=== PATIENT | female | born 1950 | race Caucasian/White ===

== ENCOUNTER 2018-01-17 19:12 | Inpatient (IN) | payer OTHER ==
[~2018-01-17] VITALS: Ht 149.9 cm; Wt 59.0 kg
[2018-01-17 19:42] LABS: ABSOLUTE BASOPHIL COUNT 0 /CUMM (0.0-0.2); ABSOLUTE EOSINOPHIL COUNT 0 /CUMM (0.0-0.7); ABSOLUTE GRANULOCYTE CT 9.8 /CUMM (1.4-6.5); ABSOLUTE LYMPH COUNT 0.9 /CUMM (1.2-3.4); ABSOLUTE MONOCYTE COUNT 0.3 /CUMM (0.10-0.60); BASOPHIL % 0.4 % (0.0-2.0); EOSINOPHIL % 0 % (0-5); HEMATOCRIT 41.4 % (37-47); MEAN CORPUSCULAR HGB 30.2 PG (27.0-31.0); MEAN CORPUSCULAR HGB CONC 32.8 G/DL (33.0-37.0); MEAN PLATELET VOLUME 7.8 FL (7.4-10.4); PLATELET COUNT 392 /CUMM (130-400); RBC DISTRIBUTION WIDTH 12.3 % (11.5-14.5)
--- NOTE | 2018-01-17 19:47 | ED GI/GU/ABDOMINAL COMPLAINT ---
History of Present Illness General Chief Complaint: Abdominal Pain/Flank Pain Stated Complaint: BIBA FOR EVAL ABDOMINAL PAIN Source: patient Exam Limitations: no limitations Vital Signs & Intake/Output Vital Signs & Intake/Output Vital Signs Date Time Temp Pulse Resp B/P B/P Pulse O2 O2 Flow FiO2 Mean Ox Delivery Rate 01/18 2252 98.8 70 20 135/60 98 Room Air 01/17 2114 97.7 73 24 151/71 98 Room Air 01/18 1956 98 Room Air 01/18 1920 97.7 62 20 132/68 98 Room Air ED Intake and Output 01/18 0000 01/17 1200 Intake Total 1000 Output Total Balance 1000 Intake, IV 1000 Patient 130 lb Weight Weight Reported by Patient Measurement Method Allergies Coded Allergies: MDX - Shellfish (SHELLFISH) (UNKNOWN 06/02/15) Reconcile Medications Esomeprazole (Nexium) 40 MG CAPSULE.DR 1 CAP PO DAILY ACID REFLUX (Reported) Losartan/Hydrochlorothiazide (Losartan-Hctz 100-12.5 MG Tab) 100 MG-12.5 MG TABLET 1 TAB PO DAILY HIGH BLOOD PRESSURE (Reported) Triage Note: BIBA FROM HOME WITH C/O ABD PAIN THAT BEGAN THIS AM. PT REPORTS HAVING A NORMAL BM THIS AM AND THE THE PAIN GOT PROGRESSIVELY WORSE. PT REPORTS VOMITING 6-7 TIMES TODAY AND ONLY HAD TOAST AND COFFEE THIS AM. PAIN 5/10 WITH AND WITHOUT PALAPTION. PT CHANGED INTO GOWN,PLACWED ON MONITOR. SARAH PEREZ IN ROOM. Triage Nurses Notes Reviewed? yes ? n Is pt currently ? No Onset: Abrupt Duration: day(s): (1), constant, continues in ED Timing: recent history Quality/Severity: moderate, sharpness, severe Location: generalized abdomen Radiation: no radiation No Modifying Factors: none HPI: 67-year-old female comes into the emergency room with complaints of left lower bowel pain has been going on since this morning. Some associated vomiting. She had 2 bowel movements this morning. She denies passing any gas since then. Pain is sharp. Severe. Continuous. Nonradiating. Denies any prior abdominal surgeries. Denies any other system symptoms. (Chris SMITH,Dov) Past History Travel History Traveled to [place] past 21 day No Medical History Any Pertinent Medical History? see below for history Surgical History Surgical History: no abdominal surgeries Psychosocial History What is your primary language Lao Tobacco Use: Never used ETOH Use: denies use Family History Hx Contributory? No (Dov Li) Review of Systems Review of Systems Constitutional: Reports: no symptoms. EENTM: Reports: no symptoms. Respiratory: Reports: no symptoms. Cardiovascular: Reports: no symptoms. GI: Reports: see HPI. Genitourinary: Reports: no symptoms. Musculoskeletal: Reports: no symptoms. Skin: Reports: no symptoms. Neurological/Psychological: Reports: no symptoms. Hematologic/Endocrine: Reports: no symptoms. Immunologic/Allergic: Reports: no symptoms. All Other Systems: Reviewed and Negative (Dov Li) Physical Exam Physical Exam General Appearance: well developed/nourished, alert, awake Head: atraumatic Eyes: Bilateral: normal appearance, EOMI. Ears, Nose, Throat, Mouth: hearing grossly normal, moist mucous membrane Neck: normal inspection Respiratory: no respiratory distress Cardiovascular: regular rate/rhythm Gastrointestinal: soft, tenderness (left lower quadrant) Back: normal inspection Extremities: normal range of motion Neurologic/Psych: awake, alert, oriented x 3, normal gait Skin: intact, normal color Core Measures ACS in differential dx? No Sepsis Present: No Sepsis Focused Exam Completed? No (Dov Li) Progress Differential Diagnosis: appendicitis, biliary colic, bowel obstruction, cholecystitis, diverticulitis, gastritis, ischemic bowel, inflamm bowel dis, ovarian cyst, ovarian torsion, pancreatitis, PID/cervicitis, peptic ulcer, PUD/ GERD, perforated viscous, SBO, threatened AB, UTI/pyelo Plan of Care: Orders Procedure Date/time Status Nothing by Mouth 01/18 B Active XRY-CHEST XRAY, TWO VIEWS 01/18 06 Active [id number] VIEWS 01/18 06 Active LACTIC ACID 01/18 0600 Active CBC WITHOUT DIFFERENTIAL 01/18 06 Active BASIC ELECTROLYTES PLUS BUN&CR 01/18 06 Active Admit to inpatient 01/17 2309 Active Pathway - chart 01/17 2257 Active Patient Data 01/17 2257 Active Code Status 01/17 225 Active LACTIC ACID 01/17 2216 Complete TROPONIN LEVEL 01/17 191 Complete LIPASE 01/17 191 Complete LACTIC ACID 01/17 191 Complete COMPREHENSIVE METABOLIC PANEL 01/18 1916 Complete CBC WITHOUT DIFFERENTIAL 01/18 1916 Complete EKG 03/03 1916 Active VTE Mechanical Prophylaxis 01/17 UNK Active Vital Signs 01/17 UNK Active Intake & Output 01/17 UNK Active Activity/Ambulation 01/17 UNK Active Current Medications Sig/Ryne Start time Last Medication Dose Stop Time Status Admin Hydrochlorothiazide 12.5 MG DAILY 01/18 1000 UNVr (Hydrodiuril) Losartan Potassium 100 MG DAILY 01/18 1000 UNVr (Cozaar) Omeprazole 40 MG DAILY AC 01/18 0700 UNVr (Prilosec) Acetaminophen 650 MG Q6PRN PRN 01/17 2300 UNVr (Tylenol) Dextrose/Sodium 1,000 ML .Q10H 01/17 2300 UNVr Chloride (D5-Normal Saline) Morphine Sulfate 2 MG Q3P PRN 01/17 2300 UNVr 01/18 (Morphine) 0026 Morphine Sulfate 4 MG Q3P PRN 01/17 2300 UNVr (Morphine) Ondansetron HCl 4 MG Q8P PRN 01/17 2300 UNVr (Zofran) Zolpidem Tartrate 2.5 MG AT BEDTIME NEED.. 01/17 2300 UNVr (Ambien) Laboratory Tests 01/17/18 2230: Lactic Acid 1.6 01/17/18 1935: Anion Gap 12, Estimated GFR > 60, BUN/Creatinine Ratio 15.7, Glucose 134 H, Lactic Acid 2.3 H, Calcium 10.0, Total Bilirubin 0.8, AST 26, ALT 29, Alkaline Phosphatase 77, Troponin I < 0.01, Total Protein 7.6, Albumin 4.5, Globulin 3.1, Albumin/Globulin Ratio 1.5, Lipase 82, CBC w Diff NO MAN DIFF REQ, RBC 4.50, MCV 92.0, MCH 30.2, MCHC 32.8 L, RDW 12.3, MPV 7.8, Gran % 89.3 H, Lymphocytes % 7.7 L, Monocytes % 2.6, Eosinophils % 0, Basophils % 0.4, Absolute Granulocytes 9.8 H, Absolute Lymphocytes 0.9 L, Absolute Monocytes 0.3, Absolute Eosinophils 0, Absolute Basophils 0 Diagnostic Imaging: Viewed by Me: CT Scan. Discussed w/RAD: CT Scan. Radiology Impression: PATIENT: RAFAL MACARIO PRESENT AGE: 67 PATIENT ACCOUNT NO: [id number] : 52 LOCATION: [facility] ORDERING PHYSICIAN: Dov SMITH SERVICE DATE: 01/17/18 EXAM TYPE: CAT - CT ABD & PELVIS W IV CONTRAST EXAMINATION: CT ABDOMEN AND PELVIS WITH CONTRAST CLINICAL INFORMATION: Lower abdominal pain, left-sided. COMPARISON: None TECHNIQUE: Multidetector volumetric imaging was performed of the abdomen and pelvis following IV administration of 95 mL of Optiray 320 intravenous contrast. Sagittal and coronal reformatted images were obtained on the technologist's workstation. DLP: 266 mGy-cm FINDINGS: LUNG BASES: There is a 0.4 cm subsolid left lower lobe pulmonary nodule. Noncalcified pleural plaque at the right lung base. LIVER, GALLBLADDER, AND BILIARY TREE: Trace ascites adjacent to the liver. No focal hepatic lesion. There is cholelithiasis without evidence of cholecystitis. No biliary ductal dilatation. PANCREAS: Unremarkable. SPLEEN: Unremarkable. ADRENAL GLANDS: Unremarkable. KIDNEYS AND URETERS: Bilateral nephrograms are symmetric without hydronephrosis. No suspicious renal mass. No renal or ureteral calculus. BLADDER: Unremarkable. GASTROINTESTINAL TRACT: There are dilated loops of small bowel with transition zone in the mid left abdomen ( see mcintyre images). Associated mesenteric edema of the dilated small bowel loops. The distal small bowel is decompressed. ABDOMINAL WALL: No significant hernia is appreciated. LYMPH NODES: No adenopathy demonstrated. 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 Mild scattered atherosclerotic calcification. PELVIC VISCERA: Trace free pelvic fluid. No suspicious uterine or adnexal lesion. OSSEOUS STRUCTURES: No acute osseous abnormalities. IMPRESSION: 1. Evidence of small bowel obstruction with transition zone in the left midabdomen (see mcintyre images). Associated mesenteric edema and trace ascites. No pneumoperitoneum. 2. Cholelithiasis without evidence of cholecystitis. 3. Subsolid left lower lobe 0.4 cm nodule. According to the UPDATED 2017 Fleischner Society recommendations, the advised follow-up imaging for a single subsolid nodule <6 mm is: No routine follow-up is needed. This critical result was discussed with Dr. Perez at 9:25 PM on 01/17/2018 and it was ascertained that the content and urgency of the report was understood at the time of direct communication. DICTATED BY: Agustin Faith MD DATE/TIME DICTATED: 01/17/182115 EQUITY TRADER:EMILIE DATE/TIME TRANSCRIBED:01/17/182115 CONFIDENTIAL, DO NOT COPY WITHOUT APPROPRIATE AUTHORIZATION. <Electronically signed in Other Vendor System> SIGNED BY: Agustin Faith MD 01/17/182132 Initial ED EKG: normal sinus rhythm, rate (60) (Dov Li) Departure Departure Disposition: STILL A PATIENT Condition: Stable Clinical Impression Primary Impression: SBO (small bowel obstruction) Referrals: Alber JUÁREZ,Dexter Ho (PCP/Family) Departure Forms: Customer Survey General Discharge Information Observation Note Spoke With: Aleks Chaudhry DO Physician Advisor Notified: JULES CHAMPION DO Place Patient In: Non-ED OBS Care Area Rationale for Observation: My rational for observation is as follows . Patient will require maintenance fluids. IV pain control. Repeat imaging in the morning. Surgery consultation. Patient may require operating room if symptoms don't resolve. (Dov Li) PA/ERP PM Co-Sign Statement Statement: ED Attending supervision documentation- x I saw and evaluated the patient. I have also reviewed all the pertinent lab results and diagnostic results. I agree with the findings and the plan of care as documented in the PA's/ERP PM's documentation. n/v, abd pain with SBO [] I have reviewed the ED Record and agree with the PA's/ERP PM's documentation. [] Additions or exceptions (if any) to the PAs/ERP PM's note and plan are summarized below: [] (Joel JUÁREZ,Marquise) Critical Care Note Critical Care Note Critical Care Time: 30-74 min (45) (Dov Li)
[2018-01-17] MEDS ORDERED: LOSARTAN-HCTZ1 EACH PO (19:54)
[2018-01-17] MEDS ORDERED: NEXIUM40 M1 PO (19:56)
[2018-01-17 20:10] LABS: GRANULOCYTE % 89.3 % (42.2-75.2)
--- NOTE | 2018-01-17 21:33 | CT SCAN REPORT ---
EXAMINATION: CT ABDOMEN AND PELVIS WITH CONTRAST CLINICAL INFORMATION: Lower abdominal pain, left-sided. COMPARISON: None TECHNIQUE: Multidetector volumetric imaging was performed of the abdomen and pelvis following IV administration of 95 mL of Optiray 320 intravenous contrast. Sagittal and coronal reformatted images were obtained on the technologist's workstation. DLP: 266 mGy-cm FINDINGS: LUNG BASES: There is a 0.4 cm subsolid left lower lobe pulmonary nodule. Noncalcified pleural plaque at the right lung base. LIVER, GALLBLADDER, AND BILIARY TREE: Trace ascites adjacent to the liver. No focal hepatic lesion. There is cholelithiasis without evidence of cholecystitis. No biliary ductal dilatation. PANCREAS: Unremarkable. SPLEEN: Unremarkable. ADRENAL GLANDS: Unremarkable. KIDNEYS AND URETERS: Bilateral nephrograms are symmetric without hydronephrosis. No suspicious renal mass. No renal or ureteral calculus. BLADDER: Unremarkable. GASTROINTESTINAL TRACT: There are dilated loops of small bowel with transition zone in the mid left abdomen (see mcintyre images). Associated mesenteric edema of the dilated small bowel loops. The distal small bowel is decompressed. ABDOMINAL WALL: No significant hernia is appreciated. LYMPH NODES: No adenopathy demonstrated. 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 Mild scattered atherosclerotic calcification. PELVIC VISCERA: Trace free pelvic fluid. No suspicious uterine or adnexal lesion. OSSEOUS STRUCTURES: No acute osseous abnormalities. IMPRESSION: 1. Evidence of small bowel obstruction with transition zone in the left midabdomen (see mcintyre images). Associated mesenteric edema and trace ascites. No pneumoperitoneum. 2. Cholelithiasis without evidence of cholecystitis. 3. Subsolid left lower lobe 0.4 cm nodule. According to the UPDATED 2017 Fleischner Society recommendations, the advised follow-up imaging for a single subsolid nodule <6 mm is: No routine follow-up is needed. This critical result was discussed with Dr. Perez at 9:25 PM on 01/17/2018 and it was ascertained that the content and urgency of the report was understood at the time of direct communication.
--- NOTE | 2018-01-17 23:12 | History & Physical Pre-Op ---
Tena Gant 01/17/18 2987: General Information and HPI MD Statement: I have seen and personally examined RAFAL MACARIO and documented this H&P. The patient is a 67 year old F who presented with a patient stated chief complaint of [abdominal pain]. Source of Information: patient Exam Limitations: no limitations History of Present Illness: 67yo female who woke up this morning feeling well, then had a piece of toast and some tea and soon after had abdominal pain. Described as upper left abdomen, not associated with nausea at first but later in the day became nauseated and has now vomited several times today. She has had two normal bowel movements today - last one before noon. Can't remember if she passed gas. Her pain has worsened throughout the day which is why she presented to the ED. She has not had this tiype of pain before. She denies prior abdominal surgeries but upon further questioning has had two C Sections. At the time of exam, she has had 4mg of morphine and a dose of zofran and she is currently comfortable without any pain or nausea and states that she feels much better. Allergies/Medications Home Med list Esomeprazole (Nexium) 40 MG CAPSULE.DR 1 CAP PO DAILY ACID REFLUX (Reported) Losartan/Hydrochlorothiazide (Losartan-Hctz 100-12.5 MG Tab) 100 MG-12.5 MG TABLET 1 TAB PO DAILY HIGH BLOOD PRESSURE (Reported) Compliance With Home Meds: GOOD Past History Medical History Cardiovascular: hypertension Respiratory: asthma (allergy induced) Gastrointestinal: GERD Surgical History Pertinent Surgical History: no abdominal surgeries Past Family/Social History Psychosocial History Where Do You Live? Home Primary Language: Egyptian ETOH Use: denies use Functional Ability ADLs Independent: dressing, eating, toileting, bathing. Ambulation: independent Review of Systems Review of Systems: Abdominal pain which is currently mild See HPI Exam & Diagnostic Data Last 24 Hrs of Vital Signs/I&O Vital Signs Date Time Temp Pulse Resp B/P B/P Pulse O2 O2 Flow FiO2 Mean Ox Delivery Rate 01/18 2252 98.8 70 20 135/60 98 Room Air 01/17 2114 97.7 73 24 151/71 98 Room Air 01/18 1956 98 Room Air 01/18 1920 97.7 62 20 132/68 98 Room Air Physical Exam: General: alert and oriented times three Chest: clear anteriorly bilaterally, RRR Abd: soft, nondistended, hypoactive bowel sounds present, tender to mild palpation in the LUQ, non tender even to moderate to deep palpation in the other three quadrants. Pt states that the pain is significantly less than upon arrival. Ext: warm, no edema, 2+DP bilaterally Last 24 Hrs of Labs/Frederic: Laboratory Tests 01/17/18 2230: Lactic Acid Pending 01/17/18 1935: Anion Gap 12, Estimated GFR > 60, BUN/Creatinine Ratio 15.7, Glucose 134 H, Lactic Acid 2.3 H, Calcium 10.0, Total Bilirubin 0.8, AST 26, ALT 29, Alkaline Phosphatase 77, Troponin I < 0.01, Total Protein 7.6, Albumin 4.5, Globulin 3.1, Albumin/Globulin Ratio 1.5, Lipase 82, CBC w Diff NO MAN DIFF REQ, RBC 4.50, MCV 92.0, MCH 30.2, MCHC 32.8 L, RDW 12.3, MPV 7.8, Gran % 89.3 H, Lymphocytes % 7.7 L, Monocytes % 2.6, Eosinophils % 0, Basophils % 0.4, Absolute Granulocytes 9.8 H, Absolute Lymphocytes 0.9 L, Absolute Monocytes 0.3, Absolute Eosinophils 0, Absolute Basophils 0 Diagnostic Data Other Results Abd/Pelvis CT 1. Evidence of small bowel obstruction with transition zone in the left midabdomen (see mcintyre images). Associated mesenteric edema and trace ascites. No pneumoperitoneum. 2. Cholelithiasis without evidence of cholecystitis. 3. Subsolid left lower lobe 0.4 cm nodule. According to the UPDATED 2017 Fleischner Society recommendations, the advised follow-up imaging for a single subsolid nodule <6 mm is: No routine follow-up is needed. Assessment/Plan Assessment/Plan: 67yo female presents with abdominal pain and CT consistent with sbo Discussed with Dr Chaudhry Plan to keep her for observation Hydrate with IVF NPO antiemetics as needed pain management with morphine as needed serial exams serial labs - second lactic acid is pending per Dr Chaudhry - 120cc of gastrograffin starting now, then get a multiview at 6 am to evaluate Discussed with the patient and her family - all questions answered As Ranked By This Provider Problem List: 1. SBO (small bowel obstruction) Copies To: Aleks Chaudhry DO, DO, Abraham 01/18/18 1643: General Information and HPI Allergies/Medications Allergies: Coded Allergies: shellfish derived (UNKNOWN 01/18/18) Attending MD Review Statement Attending Statement Attending MD Statement: examined this patient, discuss w/resident/PA/ELECTRONIC ENGINEERING DRAFTSPERSON, agreed w/resident/PA/ELECTRONIC ENGINEERING DRAFTSPERSON, discussed with family, reviewed EMR data (avail), reviewed images Attending Assessment/Plan: Patient seen and examined, agree with above. Sudden onset on abd pain with emesis. H/O x 2. Currently feels much better with no pain/cramping. AVSS UO ok + liquid BM today. Abd-softly distended, NT. Labs ok. AXR - contrast in stomach with some dilated small bowel. Although X-ray does not show resolution, clinically the patient appears to be reslolving. Will give a dse of Reglan, AXR in AM, sips/chips, OOB/ambulate. If no resolution within next 24-36 hrs then will need an exploration. D/W patient and family who are all in agreement with the plan.
[2018-01-18 02:30] VITALS: BP 130/68
[2018-01-18 07:07] VITALS: BP 120/64
[2018-01-18 09:36] LABS: ABSOLUTE BASOPHIL COUNT 0 /CUMM (0.0-0.2); ABSOLUTE EOSINOPHIL COUNT 0 /CUMM (0.0-0.7); ABSOLUTE GRANULOCYTE CT 5.3 /CUMM (1.4-6.5); ABSOLUTE LYMPH COUNT 1.8 /CUMM (1.2-3.4); ABSOLUTE MONOCYTE COUNT 0.4 /CUMM (0.10-0.60); BASOPHIL % 0.4 % (0.0-2.0); EOSINOPHIL % 0.4 % (0-5); GRANULOCYTE % 70.3 % (42.2-75.2); MEAN CORPUSCULAR HGB CONC 33.9 G/DL (33.0-37.0)
[2018-01-18 09:50] LABS: MEAN CORPUSCULAR VOLUME 91.7 FL (81.0-99.0); MEAN PLATELET VOLUME 9.5 FL (7.4-10.4); PLATELET COUNT 303 /CUMM (130-400); RBC DISTRIBUTION WIDTH 12.8 % (11.5-14.5); RED BLOOD CELL CT 3.85 /CUMM (4.20-5.40); WHITE BLOOD CELL COUNT 7.5 /CUMM (4.8-10.8)
[2018-01-18 09:52] LABS: HEMATOCRIT 35.3 % (37-47)
--- NOTE | 2018-01-18 10:35 | PN- General Surgery ---
Subjective Subjective: PT IN BED, PAIN HAS SIGNIFICANTLY DECREASED SINCE YESTERDAY, ONLY A 2/10 NOW. NO NAUSEA OR VOMITING. NO FLATUS. VOIDING. DENIES FEVERS, CP/SOB Objective Vital Signs and I&Os Vital Signs Date Time Temp Pulse Resp B/P B/P Pulse O2 O2 Flow FiO2 Mean Ox Delivery Rate 01/18 0944 64 122/60 03/04 0707 98.1 64 20 120/64 98 Room Air / 0300 99 Room Air / 0230 98.6 60 20 130/68 99 Room Air / 0215 98.5 62 20 129/64 98 Room Air 01/17 2252 98.8 70 20 135/60 98 Room Air 01/17 2114 97.7 73 24 151/71 98 Room Air 01/17 1956 98 Room Air 01/17 1920 97.7 62 20 132/68 98 Room Air Intake & Output 01/18 1600 / 0800 03/04 0000 /03 1600 01/17 0800 01/17 0000 Intake Total 595 1000 Output Total 300 Balance 295 1000 Intake, IV 545 1000 Intake, Oral 50 Number 0 Bowel Movements Output, Urine 300 Patient 130 lb 130 lb Weight Weight Reported by Patient Reported by Patient Measurement Method Physical Exam: GEN- NAD RESP- CLEAR CARDIO-RRR ABD- MILDLY DISTENDED, +BS, SOFT NONTENDER Assessment/Plan Assessment/Plan 67YO F WITH SBO. STABLE. AWAITING MULTIVIEW FILMS TO BE DONE AROUND 12NOON. CONT OBV FOR NOW BOWEL REST- NPO WITH IVF PRN PAIN MEDS DVT PPX- ALPS WILL DISCUSS WITH DR KRUSE Core Measures Venous Thromboembolism VTE Risk Factors Age>40 No Mechanical VTE Prophylaxis d/t N/A MechProphylax Ordered No VTE Pharm Prophylaxis d/t LowRisk-No Interven Req'd
[2018-01-18 13:46] VITALS: BP 128/70
--- NOTE | 2018-01-18 15:06 | RADIOLOGY REPORT ---
EXAMINATION: XR ABDOMEN MULTIPLE VIEWS CLINICAL INDICATION: Small bowel obstruction. Status post 120 mL Gastrografin. COMPARISON: Abdominal radiography 01/16/2017. CT abdomen pelvis 01/17/2018. TECHNIQUE: 2 views of the abdomen. FINDINGS: Contrast is demonstrated within the gastric lumen. There are dilated loops of small bowel centrally over the abdomen. No evidence of pneumoperitoneum. The colon is decompressed. Cholelithiasis. IMPRESSION: Contrast resides within the gastric lumen. Persistent small bowel dilatation consistent with history of small bowel obstruction.
--- NOTE | 2018-01-18 16:57 | RADIOLOGY REPORT ---
EXAMINATION: XR CHEST CLINICAL INFORMATION: Possible preop. COMPARISON: Chest radiography 10/29/2017. TECHNIQUE: 2 views of the chest were obtained. FINDINGS: No new significant abnormality is noted involving the heart, lungs, mediastinum, bony thorax or soft tissues. IMPRESSION: No acute pulmonary pathology demonstrated.
[2018-01-18 22:16] VITALS: BP 102/64
[2018-01-19 06:21] VITALS: BP 122/70
--- NOTE | 2018-01-19 07:45 | PN- General Surgery ---
See Addendum Subjective Subjective: No events overnight. Patient states her abdominal pain is improved this am. Admits to mild intermittent suprapubic and LLQ abdominal pain. Denies any nausea or emesis. Did have watery diarrhea overnight x 4 and admits to passing flatus this am. Denies any fevers, chills, chest pain, or SOB. Objective Vital Signs and I&Os Vital Signs Date Time Temp Pulse Resp B/P B/P Pulse O2 O2 Flow FiO2 Mean Ox Delivery Rate 01/19 621 98.1 79 20 122/70 98 Room Air 01/18 2216 97.9 72 20 102/64 96 Room Air 01/18 1346 98.3 78 20 128/70 98 Room Air 01/18 0944 64 122/60 Intake & Output 01/19 0800 03/ 0000 / 1600 / 0800 / 0000 01/17 1600 Intake Total 800 180 025 7415 Output Total 300 Balance 800 651 701 2907 Intake, IV 800 302 138 9141 Intake, Oral 0 120 50 Number 1 0 Bowel Movements Output, Urine 300 Patient 130 lb 130 lb Weight Weight Reported by Patient Reported by Patient Measurement Method Physical Exam: Afebrile, VSS. Cardiac: RRR Pulmonary: CTAB Abdominal: + BS, softly distended, mild suprapubic and LLQ tenderness to palpation. No rebound or guarding. Non peritoneal. Assessment/Plan Assessment/Plan 67 y/o F admitted with SBO being managed conservatively with return of bowel function. - Plan for repeat multiview films today - Pending films may advance to clears following - Continue supplemental IVF - Pain meds and antiemetics prn - DVT ppx - ALPS - will d/w Dr. Chaudhry Core Measures Venous Thromboembolism VTE Risk Factors Age>40 No Mechanical VTE Prophylaxis d/t N/A MechProphylax Ordered No VTE Pharm Prophylaxis d/t LowRisk-No Interven Req'd
[2018-01-19 08:54] LABS: ABSOLUTE BASOPHIL COUNT 0 /CUMM (0.0-0.2); ABSOLUTE EOSINOPHIL COUNT 0.3 /CUMM (0.0-0.7); ABSOLUTE GRANULOCYTE CT 3.4 /CUMM (1.4-6.5); ABSOLUTE LYMPH COUNT 1.8 /CUMM (1.2-3.4); ABSOLUTE MONOCYTE COUNT 0.3 /CUMM (0.10-0.60); BASOPHIL % 0.4 % (0.0-2.0); EOSINOPHIL % 4.6 % (0-5); GRANULOCYTE % 58.3 % (42.2-75.2); HEMATOCRIT 35.2 % (37-47); MEAN CORPUSCULAR HGB 30.7 PG (27.0-31.0); MEAN CORPUSCULAR HGB CONC 33.5 G/DL (33.0-37.0); MEAN CORPUSCULAR VOLUME 91.8 FL (81.0-99.0); MEAN PLATELET VOLUME 9.4 FL (7.4-10.4); PLATELET COUNT 296 /CUMM (130-400); RBC DISTRIBUTION WIDTH 12.9 % (11.5-14.5); RED BLOOD CELL CT 3.84 /CUMM (4.20-5.40); WHITE BLOOD CELL COUNT 5.8 /CUMM (4.8-10.8)
--- NOTE | 2018-01-19 13:35 | RADIOLOGY REPORT ---
EXAMINATION: XR ABDOMEN MULTIPLE VIEWS CLINICAL INDICATION: Abdominal pain and nausea. Presumptive diagnosis of small bowel obstruction. COMPARISON: Two-view abdomen dated 01/18/2018. CT scan of the abdomen and pelvis dated 01/17/2018. TECHNIQUE: 2 views of the abdomen. FINDINGS: Persistent abnormal dilatation of small bowel loops in the left side of the abdomen are noted with scattered air-fluid levels on the upright view. Compared to the prior exam, degree of small bowel distention is similar. Findings remain suspicious for a small bowel obstruction, likely partial/incomplete given that there is some gas in the remainder of the more distal loops, including in what appears to be the rectosigmoid region. No free air is noted. There are calcified gallstones seen in the left upper quadrant, unchanged. There is a mild convex right thoracolumbar scoliosis. Bony structures are otherwise unremarkable. Included lung bases are clear. IMPRESSION: Ongoing partial/incomplete small bowel obstruction is seen, unchanged from prior exam.
[2018-01-19 15:27] VITALS: BP 121/79
[2018-01-19 22:16] VITALS: BP 128/74
[2018-01-20 06:27] VITALS: BP 116/62
--- NOTE | 2018-01-20 08:24 | PN- General Surgery ---
See Addendum Subjective Subjective: Reports improved abdominal pain, passing gas and had 6 loose bowel movements, nonbloody and non-malodorus last night/this morning. Tolerating clears for lung yesterday, reports abdominal discomfort with dinner, denies any nausea or vomiting currently. Feels less bloated. Ambulated yesterday and this morning. No other complaints. Objective Vital Signs and I&Os Vital Signs Date Time Temp Pulse Resp B/P B/P Pulse O2 O2 Flow FiO2 Mean Ox Delivery Rate 01/20 0951 70 116/62 01/20 0627 97.9 70 18 116/62 98 Room Air 01/19 2216 98.2 85 20 128/74 98 01/19 1527 98.5 70 20 121/79 98 Intake & Output 01/20 1600 01/20 0801/20 0000 01/19 1600 01/19 0000 Intake Total 480 480 840 50 800 Output Total Balance 480 480 840 50 800 Intake, IV 600 800 Intake, Oral 480 480 240 50 0 Number 1 0 4 Bowel Movements Patient 130 lb Weight Physical Exam: Gen - resting comfortably NAD Cardiac: S1S2, RRR Lungs: CTAB Abdominal: Soft, mildly distended, normoactive BS, dull to percussion, nontender , no rebound or guarding noted Current Medications: Current Medications Sig/Ryne Start time Last Medication Dose Route Stop Time Status Admin Acetaminophen 650 MG Q6PRN PRN 01/17 2300 AC PO Dextrose/Sodium 1,000 ML .Q10H 01/17 2300 DC 01/19 [place] 0948 Heparin Sodium 5,000 UNIT Q8 01/18 2200 AC 01/20 (Porcine) SC 0551 Hydrochlorothiazide 12.5 MG DAILY 01/18 1000 AC 01/20 PO 0951 Ketorolac 15 MG Q8H PRN 01/18 1630 AC Tromethamine IV 01/23 1629 Losartan Potassium 100 MG DAILY 01/18 1000 AC 01/20 PO 0951 Metoclopramide HCl 10 MG ONCE ONE 01/19 1745 DC 01/19 IV 01/19 1746 1807 Morphine Sulfate 2 MG Q3P PRN 01/18 0045 AC IV Morphine Sulfate 4 MG Q3P PRN 01/17 2300 AC IV Omeprazole 40 MG DAILY AC 01/18 0700 AC 01/20 PO 0551 Ondansetron HCl 4 MG Q8P PRN 01/17 2300 AC IV Patient Medication 1 ED ONE ONE 01/19 1600 DC 01/19 Teaching ED 01/19 1601 1807 Potassium Chloride 10 MEQ Q1H 01/19 1115 CAN IV 01/19 1216 Potassium Chloride 10 MEQ Q1H 01/19 1115 CAN IV 01/19 1216 Potassium Chloride 20 MEQ 1115 01/19 1115 DC 01/19 PO 01/19 1116 1218 Zolpidem Tartrate 2.5 MG AT BEDTIME NEED.. 01/17 2300 AC PO Results Last 48 Hours of Labs: Laboratory Tests 01/20 01/19 0715 0720 Chemistry Sodium (137 - 145 mmol/L) 138 143 Potassium (3.5 - 5.1 mmol/L) 3.5 3.4 L Chloride (98 - 107 mmol/L) 103 113 H Carbon Dioxide (22 - 30 mmol/L) 24 23 Anion Gap (5 - 16) 11 7 BUN (7 - 17 mg/dL) 8 8 Creatinine (0.5 - 1.0 mg/dL) 0.7 0.7 Estimated GFR (>60 ml/min) > 60 > 60 BUN/Creatinine Ratio (7 - 25 %) 11.4 11.4 Phosphorus (2.5 - 4.5 mg/dL) 3.8 3.3 Magnesium (1.6 - 2.3 mg/dL) 1.6 1.8 Hematology CBC w Diff NO MAN DIFF REQ WBC (4.8 - 10.8 /CUMM) 5.8 RBC (4.20 - 5.40 /CUMM) 3.84 L Hgb (12.0 - 16.0 G/DL) 11.8 L Hct (37 - 47 %) 35.2 L MCV (81.0 - 99.0 FL) 91.8 MCH (27.0 - 31.0 PG) 30.7 MCHC (33.0 - 37.0 G/DL) 33.5 RDW (11.5 - 14.5 %) 12.9 Plt Count (130 - 400 /CUMM) 296 MPV (7.4 - 10.4 FL) 9.4 Gran % (42.2 - 75.2 %) 58.3 Lymphocytes % (20.5 - 51.1 %) 31.0 Monocytes % (1.7 - 9.3 %) 5.7 Eosinophils % (0 - 5 %) 4.6 Basophils % (0.0 - 2.0 %) 0.4 Absolute Granulocytes (1.4 - 6.5 /CUMM) 3.4 Absolute Lymphocytes (1.2 - 3.4 /CUMM) 1.8 Absolute Monocytes (0.10 - 0.60 /CUMM) 0.3 Absolute Eosinophils (0.0 - 0.7 /CUMM) 0.3 Absolute Basophils (0.0 - 0.2 /CUMM) 0 Assessment/Plan Assessment/Plan 67 F w/ pshx of x2, admitted with SBO likely due to adhesions which appears to be improving. She has return of bowel function and AXR yesterday revealed persistent small bowel dilatation with contrast in colon. Cont conservative management AXR this morning Cont clears, advance pending axr Pain meds prn Encourage ambulation, alps DVT ppx - hsq Home meds/GI ppx on board [facility] reviewed and normal F/u imaging D/w Dr. Chaudhry Core Measures Venous Thromboembolism VTE Risk Factors Age>40 No Mechanical VTE Prophylaxis d/t N/A MechProphylax Ordered No VTE Pharm Prophylaxis d/t LowRisk-No Interven Req'd
--- NOTE | 2018-01-20 14:12 | RADIOLOGY REPORT ---
EXAMINATION: XR ABDOMEN MULTIPLE VIEWS CLINICAL INDICATION: Abdominal pain and distention. Presumptive diagnosis of small bowel obstruction. COMPARISON: Multiple prior 2 view abdomens, most recent of which is dated 01/19/2018. TECHNIQUE: 2 views of the abdomen. FINDINGS: Evaluation is mildly limited due to motion artifact. There is persistent gaseous distention of small bowel loops in the left side of the abdomen, similar to the previous exam with scattered air-fluid levels on the upright view. There is some gas seen in the right and transverse colon and in the rectosigmoid colon region. Findings are consistent with ongoing partial small bowel bowel obstruction. No evidence of bowel perforation is seen. Lung bases are unremarkable. There is a convex right thoracolumbar scoliosis. Right upper quadrant calcified gallstones are noted. IMPRESSION: No interval change in degree of bowel distention. Findings remain suspicious for ongoing partial/incomplete small bowel obstruction.
--- NOTE | 2018-01-20 16:16 | Operative Report ---
Operative/Inv Procedure Report Surgery Date: 01/20/18 Name of Procedure: Diagnostic laparoscopy with laparoscopic lysis of adhesions Pre-Operative Diagnosis: SBO Post-Operative Diagnosis: Same Estimated Blood Loss: less than 50ml Surgeon/Register Repairer: Aleks Chaudhry DO Anesthesia: general endotracheal tube IV Fluids: 500 cc Drains: None Specimens: None Complications: None Condition: Stable Operative Indication: This is a 67-year-old female presented to the emergency room with abdominal pain. After appropriate workup was completed the patient was diagnosed with small bowel obstruction and was admitted for conservative management. Patient did appear to improve but never really resolved the obstruction completely. The patient was observed for approximately 72 hours. At that point given lack of improvement in the small bowel obstruction and an unchanged abdominal x-ray, a diagnostic laparoscopy, possible laparotomy, possible small bowel resection was discussed in detail. All risks including but not limited to bleeding, infection , and injury to surrounding bowel were discussed in detail. The patient understood everything and decided to proceed. Operative/Procedure Note Note: The patient was brought to the operating room and placed on the table in supine position. Venodyne stockings were placed and adequate general tracheal anesthesia was obtained. Patient was prepped and draped in standard surgical fashion. Began the procedure by making a 2 cm midline incision just above the umbilicus. Incision was carried through the subcutaneous tissue to the fascia. Once the fascia was clearly visualized was picked up between 2 Eleno clamps and divided in the midline. Once the peritoneum was entered 2 0 Vicryl sutures were placed on each side and a 12 mm blunt port was inserted. The abdominal cavity was insufflated to 15 mmHg. A 10 mm 30 laparoscope was introduced. Upon initial examination we did note some omental adhesions to the anterior abdominal wall. 5 mm ports are placed in the right upper quadrant and right lateral position. At that point the omentum was dissected off the anterior abdominal wall using Harmonic scalpel maintaining hemostasis. Once omentum was completely off we examined the small bowel and we did note some dilated loops of small bowel in the left upper quadrant and the rest of the small bowel appeared collapsed. With manipulation of the omentum we noted an adhesion from the omentum to the small bowel mesentery with a loop of small bowel going through the adhesion forming an internal hernia. That adhesion was lysed using Harmonic scalpel as well and the small bowel was brought out. At that point the small bowel was run from the terminal ileum to the ligament of Treitz by placing 2 more 5 mm ports, one in the left lower quadrant and one suprapubic. No other adhesions were noted. No injury to the small bowel was noted. Proximal small bowel did appear dilated just proximal to the area of the adhesion. No evidence of ischemia was noted. At that point ports were removed under direct visualization, no obvious bleeding was noted. The periumbilical port site fascia was closed using 0 Vicryl suture. Skin was closed using 4-0 Monocryl. Steri-Strips and dressings were placed. The patient was successfully extubated and transferred to the recovery room in stable condition. The patient tolerated the procedure well with no Complications. Findings: Omental adhesions to anterior abdominal wall, omental adhesion to small bowel mesentery causing an obstruction via an internal hernia, no evidence of ischemia CC: Alber JUÁREZ,Dexter Ho
[2018-01-20 17:27] VITALS: BP 120/70
[2018-01-20 22:06] VITALS: BP 100/65
--- NOTE | 2018-01-20 23:28 | PN- General Surgery ---
Subjective Subjective: Postop check: Patient feeling much improved, minimal pain, no belching, no nausea no vomiting, no flatus or bowel movement Objective Vital Signs and I&Os Vital Signs Date Time Temp Pulse Resp B/P B/P Pulse O2 O2 Flow FiO2 Mean Ox Delivery Rate 01/20 2206 97.8 68 20 100/65 96 01/20 1727 97.9 80 18 120/70 98 Room Air 01/20 0951 70 116/62 01/20 0627 97.9 70 18 116/62 98 Room Air Intake & Output 01/20 1600 01/20 0800 01/20 0000 01/19 1600 01/19 0800 01/19 0000 Intake Total 600 480 480 840 50 800 Output Total Balance 600 480 480 840 50 800 Intake, IV 600 800 Intake, Oral 600 480 480 240 50 0 Number 1 0 4 Bowel Movements Patient 130 lb Weight Physical Exam: Well-developed well-nourished no apparent distress. HEENT: Atraumatic, extraocular motion intact Neck: Supple, no lymphadenopathy Respiratory: No respiratory distress Abdomen: Positive bowel sounds. Minimal distention, minimal tenderness in the epigastric and central abdominal region. Incision sites clean dry and intact Extremities: No edema, no calf pain Neuro: Alert and oriented x3 Psych: Mood affect normal, normal memory normal judgment. Skin: Warm and dry, no rash on exposed skin Assessment/Plan Assessment/Plan Postop day #0 status post exploratory laparoscopy and lysis of adhesions Clears for now, advance as tolerated tomorrow Pain medication as needed. Monitored for return of bowel function Out of bed IV fluids Possible discharge tomorrow Core Measures Venous Thromboembolism VTE Risk Factors Age>40 No Mechanical VTE Prophylaxis d/t N/A MechProphylax Ordered No VTE Pharm Prophylaxis d/t LowRisk-No Interven Req'd
[2018-01-21 06:39] VITALS: BP 121/65
--- NOTE | 2018-01-21 07:10 | PN- General Surgery ---
See Addendum Subjective Subjective: Minor incisional discomfort. Tolerating clears. Passing flatus. No bm yet. Ambulating without difficulty. No dizziness. No shortness of breath. No chest pains. Voiding well. Objective Vital Signs and I&Os Vital Signs Date Time Temp Pulse Resp B/P B/P Pulse O2 O2 Flow FiO2 Mean Ox Delivery Rate 01/21 0639 97.5 68 18 121/65 98 Room Air 01/20 220 97.8 68 20 100/65 96 01/20 1727 97.9 80 18 120/70 98 Room Air 01/20 0951 70 116/62 Intake & Output 01/21 0800 01/21 0000 01/20 1600 01/20 0801/20 0000 01/19 1600 Intake Total 1000 600 480 480 840 Output Total Balance 1000 600 480 480 840 Intake, IV 300 600 Intake, Oral 700 600 480 480 240 Number 1 0 Bowel Movements Patient 130 lb Weight Physical Exam: General - alert & oriented x 3. out of bed to chair. no acute distress. Lungs - clear bilaterally. no w/r/r. Cardiac - s1s2. reg. Abdomen - soft. dressings c/d/i. bowel sounds appreciated. expected no- incisional tenderness. Extremities - warm bilaterally. no c/c/e. calves soft and nontender b/l. Current Medications: Current Medications Sig/Ryne Start time Last Medication Dose Route Stop Time Status Admin Acetaminophen 650 MG Q6PRN PRN 01/17 2300 AC PO Fentanyl Citrate 200 MCG .STK-MED ONE 01/20 1351 DC IM 01/20 1352 Heparin Sodium 5,000 UNIT Q8 01/20 2200 AC 01/21 (Porcine) SC 0620 Heparin Sodium 5,000 UNIT Q8 01/18 2200 DC 01/20 (Porcine) SC 0551 Hydrochlorothiazide 12.5 MG DAILY 01/18 1000 AC 01/20 PO 0951 Ketorolac 15 MG Q8H PRN 01/18 1630 AC Tromethamine IV 01/23 1629 Losartan Potassium 100 MG DAILY 01/18 1000 AC 01/20 PO 0951 Meperidine HCl 50 MG .STK-MED ONE 01/20 1636 DC IM 01/20 1637 Meperidine HCl 50 MG .STK-MED ONE 01/20 1623 DC IM 01/20 1624 Midazolam HCl 2 MG .STK-MED ONE 01/20 1352 DC IM 01/20 1353 Morphine Sulfate 4 MG Q3P PRN 01/20 1615 AC IV Morphine Sulfate 10 MG .STK-MED ONE 01/20 1351 DC IV 01/20 1352 Morphine Sulfate 2 MG Q3P PRN 01/18 0045 DC IV Morphine Sulfate 4 MG Q3P PRN 01/17 2300 DC IV Omeprazole 40 MG DAILY AC 01/18 0700 AC 01/21 PO 0616 Ondansetron HCl 4 MG Q8P PRN 01/17 2300 AC IV Oxycodone/ 1 TAB Q4P PRN 01/20 1615 AC Acetaminophen PO Oxycodone/ 2 TAB Q4P PRN 01/20 1615 AC Acetaminophen PO Sodium Chloride 1,000 ML ONCE ONE 01/20 1615 DC 01/20 IV 01/21 0534 1724 Zolpidem Tartrate 2.5 MG AT BEDTIME NEED.. 01/17 2300 AC PO Results Last 48 Hours of Labs: Laboratory Tests 01/20 01/19 0715 0720 Chemistry Sodium (137 - 145 mmol/L) 138 143 Potassium (3.5 - 5.1 mmol/L) 3.5 3.4 L Chloride (98 - 107 mmol/L) 103 113 H Carbon Dioxide (22 - 30 mmol/L) 24 23 Anion Gap (5 - 16) 11 7 BUN (7 - 17 mg/dL) 8 8 Creatinine (0.5 - 1.0 mg/dL) 0.7 0.7 Estimated GFR (>60 ml/min) > 60 > 60 BUN/Creatinine Ratio (7 - 25 %) 11.4 11.4 Phosphorus (2.5 - 4.5 mg/dL) 3.8 3.3 Magnesium (1.6 - 2.3 mg/dL) 1.6 1.8 Hematology CBC w Diff NO MAN DIFF REQ WBC (4.8 - 10.8 /CUMM) 5.8 RBC (4.20 - 5.40 /CUMM) 3.84 L Hgb (12.0 - 16.0 G/DL) 11.8 L Hct (37 - 47 %) 35.2 L MCV (81.0 - 99.0 FL) 91.8 MCH (27.0 - 31.0 PG) 30.7 MCHC (33.0 - 37.0 G/DL) 33.5 RDW (11.5 - 14.5 %) 12.9 Plt Count (130 - 400 /CUMM) 296 MPV (7.4 - 10.4 FL) 9.4 Gran % (42.2 - 75.2 %) 58.3 Lymphocytes % (20.5 - 51.1 %) 31.0 Monocytes % (1.7 - 9.3 %) 5.7 Eosinophils % (0 - 5 %) 4.6 Basophils % (0.0 - 2.0 %) 0.4 Absolute Granulocytes (1.4 - 6.5 /CUMM) 3.4 Absolute Lymphocytes (1.2 - 3.4 /CUMM) 1.8 Absolute Monocytes (0.10 - 0.60 /CUMM) 0.3 Absolute Eosinophils (0.0 - 0.7 /CUMM) 0.3 Absolute Basophils (0.0 - 0.2 /CUMM) 0 Assessment/Plan Assessment/Plan This 67 year old female is POD#1 s/p diagnostic laparoscopy with laparoscopic lysis of adhesions for sbo tolerating clears. trying fulls/toast for breakfast pain medication as ordered oob/ambulation hep sc - dvt ppx f/u labs home meds ordered d/c planning ?today vs tomorrow will d/w Core Measures Venous Thromboembolism VTE Risk Factors Age>40 No Mechanical VTE Prophylaxis d/t N/A MechProphylax Ordered No VTE Pharm Prophylaxis d/t LowRisk-No Interven Req'd
--- NOTE | 2018-01-21 07:16 | Patient Discharge Instructions ---
Discharge Instructions General Discharge Information You were seen/treated for: small bowel obstruction, adhesions You had these procedures: Diagnostic laparoscopy with laparoscopic lysis of adhesions Watch for these problems: fever>101.3, increased pain, redness/swelling/drainage, dizziness, shortness of breath, chest pains No bath, but you may shower: Yes Other wound care: ok to remove outer dressings. leave white steri strips in place. ok to shower. keep incisions clean & dry. Diet Continue normal diet: Yes Recommended Diet: Regular Activity Full Activity/No Limits: No Activity Self Limited: Yes Pounds, do NOT lift more than: 10 Other activity limits: no heavy lifting. no strenuous activity. Acute Coronary Syndrome Inclusion Criteria At DC or during hospital stay patient has or had the following: ACS DIAGNOSIS No Discharge Core Measures Meds if any: Prescribed or Continued at Discharge Meds if any: NOT Prescribed or Continued at Discharge Congestive Heart Failure Inclusion Criteria At DC or during hospital stay patient has or had the following: CHF DIAGNOSIS No Discharge Core Measures Meds if any: Prescribed or Continued at Discharge Meds if any: NOT Prescribed or Continued at Discharge Cerebrovascular accident Inclusion Criteria At DC or during hospital stay patient has or had the following: CVA/TIA Diagnosis No Discharge Core Measures Meds if any: Prescribed or Continued at Discharge Meds if any: NOT Prescribed or Continued at Discharge Venous thromboembolism Inclusion Criteria VTE Diagnosis No VTE Type NONE VTE Confirmed by (Test) NONE Discharge Core Measures - Per Current guidelines, there needs to be overlap - treatment for the first 5 days of Warfarin therapy. - If discharged on Warfarin prior to 5 days of - overlap therapy, the patient will need to be - assessed for post discharge needs including - *Post discharge parental anticoagulation - *Warfarin and/or parental anticoagulation education - *Follow up date to check INR post discharge At least 5 days overlap therapy as Inpatient No Meds if any: Prescribed or Continued at Discharge Note: Overlap Therapy is Warfarin and Anticoagulant Meds if any: NOT Prescribed or Continued at Discharge
[2018-01-21] MEDS ORDERED: PERCOCET 5-3251 EACH PO (07:17)
[2018-01-21] MEDS ORDERED: COLACE100 M1 PO (07:17)
[2018-01-21] MEDS ORDERED: MOTRIN IB200 M1 PO (07:17)
--- NOTE | 2018-01-21 07:22 | Surg Short-stay <48hrs Dis Sum ---
Visit Information Visit Dates Admission Date: 01/17/18 Discharge Date: 01/22/18 Surgical Short Stay DC Summary Admission Diagnosis: SBO Final Diagnosis: same as above, s/p Diagnostic laparoscopy with laparoscopic lysis of adhesions Procedure(s): Diagnostic laparoscopy with laparoscopic lysis of adhesions (01/20/18) Summary/Significant Findings: Presented on 01/17/18 with abdominal pain, and findings showing a small bowel obstruction. Failed conservative treatment for sbo. Taken to OR on 01/20/18 for diagnostic laparoscopy with laparoscopic lysis of adhesions. Diet advancement as tolerated, with return of bowel function. Discharged home once tolerating diet and pain controlled with oral medications. Condition at Discharge: stable Discharge Disposition: home or self care Discharge instructions provided to patient/family: Yes Post discharge follow-up plan: 2 week follow up appointment with Copies to: Alber JUÁREZ,Dexter Ho
[2018-01-21 08:38] LABS: ABSOLUTE BASOPHIL COUNT 0 /CUMM (0.0-0.2); ABSOLUTE EOSINOPHIL COUNT 0 /CUMM (0.0-0.7); ABSOLUTE GRANULOCYTE CT 5.2 /CUMM (1.4-6.5); ABSOLUTE LYMPH COUNT 0.7 /CUMM (1.2-3.4); ABSOLUTE MONOCYTE COUNT 0.3 /CUMM (0.10-0.60); BASOPHIL % 0.3 % (0.0-2.0); EOSINOPHIL % 0.1 % (0-5); GRANULOCYTE % 83.7 % (42.2-75.2); MEAN CORPUSCULAR HGB CONC 34.1 G/DL (33.0-37.0); MEAN CORPUSCULAR VOLUME 91.1 FL (81.0-99.0); MEAN PLATELET VOLUME 9.6 FL (7.4-10.4); PLATELET COUNT 303 /CUMM (130-400); RBC DISTRIBUTION WIDTH 12.5 % (11.5-14.5); RED BLOOD CELL CT 3.73 /CUMM (4.20-5.40); WHITE BLOOD CELL COUNT 6.3 /CUMM (4.8-10.8)
[2018-01-21 14:41] VITALS: BP 120/60
[2018-01-21 22:26] VITALS: BP 107/67
[2018-01-22 06:29] VITALS: BP 114/66
[2018-01-22 08:16] VITALS: BP 114/66
--- NOTE | 2018-01-22 08:27 | PN- General Surgery ---
Subjective Subjective: Patient up ambulating in the halls. Reports feeling great. Passing flatus, denies BM. Tolertating low fiber diet. Denies pain. Offers no complaints. Objective Vital Signs and I&Os Vital Signs Date Time Temp Pulse Resp B/P B/P Pulse O2 O2 Flow FiO2 Mean Ox Delivery Rate 01/23 0816 60 114/66 01/22 0629 98.2 60 18 114/66 97 Room Air 01/21 2226 98.1 62 18 107/67 97 Room Air 01/21 1441 98.1 76 20 120/60 98 01/21 1022 68 122/66 Intake & Output 01/22 1600 01/22 0800 01/22 0000 01/21 1600 01/21 0800 01/21 0000 Intake Total 900 431 866 9723 Output Total Balance 900 559 237 9234 Intake, IV 600 300 Intake, Oral 900 980 50 700 Number 0 0 Bowel Movements Physical Exam: Gen - nad Cardiac - s1s2, rrr Lungs - ctab Abd - soft, nondistened, normoactive bs, incisions with steri in place, no signs of infection, left juan, nontender throughout Ext - no edema or calf tenderness b/l Current Medications: Current Medications Sig/Ryne Start time Last Medication Dose Route Stop Time Status Admin Acetaminophen 650 MG Q6PRN PRN 01/17 2300 AC PO Heparin Sodium 5,000 UNIT Q8 01/20 2200 AC 01/22 (Porcine) SC 0647 Hydrochlorothiazide 12.5 MG DAILY 01/18 1000 AC 01/22 PO 0815 Ketorolac 15 MG Q8H PRN 01/18 1630 AC Tromethamine IV 01/23 1629 Losartan Potassium 100 MG DAILY 01/18 1000 AC 01/22 PO 0816 Morphine Sulfate 4 MG Q3P PRN 01/20 1615 AC IV Omeprazole 40 MG DAILY AC 01/18 0700 AC 01/22 PO 0628 Ondansetron HCl 4 MG Q8P PRN 01/17 2300 AC IV Oxycodone/ 1 TAB Q4P PRN 01/20 1615 AC Acetaminophen PO Oxycodone/ 2 TAB Q4P PRN 01/20 1615 AC Acetaminophen PO Patient Medication 1 ED ONE ONE 01/21 1030 DC 01/21 Teaching ED 01/21 1031 1025 Zolpidem Tartrate 2.5 MG AT BEDTIME NEED.. 03/03 2300 AC PO Results Last 48 Hours of Labs: Laboratory Tests 01/21 0724 Chemistry Sodium (137 - 145 mmol/L) 139 Potassium (3.5 - 5.1 mmol/L) 3.5 Chloride (98 - 107 mmol/L) 103 Carbon Dioxide (22 - 30 mmol/L) 23 Anion Gap (5 - 16) 13 BUN (7 - 17 mg/dL) 8 Creatinine (0.5 - 1.0 mg/dL) 0.7 Estimated GFR (>60 ml/min) > 60 BUN/Creatinine Ratio (7 - 25 %) 11.4 Hematology CBC w Diff NO MAN DIFF REQ WBC (4.8 - 10.8 /CUMM) 6.3 RBC (4.20 - 5.40 /CUMM) 3.73 L Hgb (12.0 - 16.0 G/DL) 11.6 L Hct (37 - 47 %) 34.0 L MCV (81.0 - 99.0 FL) 91.1 MCH (27.0 - 31.0 PG) 31.0 MCHC (33.0 - 37.0 G/DL) 34.1 RDW (11.5 - 14.5 %) 12.5 Plt Count (130 - 400 /CUMM) 303 MPV (7.4 - 10.4 FL) 9.6 Gran % (42.2 - 75.2 %) 83.7 H Lymphocytes % (20.5 - 51.1 %) 11.8 L Monocytes % (1.7 - 9.3 %) 4.1 Eosinophils % (0 - 5 %) 0.1 Basophils % (0.0 - 2.0 %) 0.3 Absolute Granulocytes (1.4 - 6.5 /CUMM) 5.2 Absolute Lymphocytes (1.2 - 3.4 /CUMM) 0.7 L Absolute Monocytes (0.10 - 0.60 /CUMM) 0.3 Absolute Eosinophils (0.0 - 0.7 /CUMM) 0 Absolute Basophils (0.0 - 0.2 /CUMM) 0 Assessment/Plan Assessment/Plan 67 F POD 2 s/p ex laparoscopy with ernie secondary to sbo due to adhesion, who is recovering well with return of bowel function Stable for d/c Low residue diet Pain prn DVT/GI ppx Home meds Ambulate Pain rx provided F/u with Dr. Chaudhry in 1-2 weeks Will d/w Dr. Chaudhry Core Measures Venous Thromboembolism VTE Risk Factors Age>40 No Mechanical VTE Prophylaxis d/t N/A MechProphylax Ordered No VTE Pharm Prophylaxis d/t LowRisk-No Interven Req'd
== END 2018-01-22 10:29 | DRG 336 ==
LOC: ERH 19:12 → ERHI 23:09 → 2NA 23:09 → ENRESERV 01-18 01:48 → 2NA 01-18 02:36 → ENTRNSPT 01-20 17:03 → EDTRNSPT 01-20 17:09 → EDTRNSPTSTS 01-20 17:09 → CMPTRNSPT 01-20 17:24 → DELTRNSPT 01-20 17:34 → ENPENDDIS 01-22 08:41 → ENTRNSPT 01-22 10:03 → EDTRNSPTSTS 01-22 10:22 → 2NA 01-22 10:29 → CMPTRNSPT 01-22 10:37
PROVIDERS: Physician Assistant Medical; Physician Assistant Surgical
PROC: 0WJG0ZZ Inspection of Peritoneal Cavity, Open Approach (ICD-10-PCS; principal; 2018-01-20)
PROC: 0DNU4ZZ Release Omentum, Percutaneous Endoscopic Approach (ICD-10-PCS; 2018-01-20)
DX: K56.50 Intestinal adhesions [bands], unspecified as to partial versus complete obstruction (principal); K46.0 Unspecified abdominal hernia with obstruction, without gangrene; I10 Essential (primary) hypertension; K21.9 Gastro-esophageal reflux disease without esophagitis
CPT/HCPCS: 2NASP; ERO; 36592; 71046; 74021; 74177; 82436; 93005; 93010; 96361; 96374; 96375; 99291; C9399; J0690; J1200; J1644; J2405; J2765; J3490